=== PATIENT | female | born 1970 | race Two or more races ===

== ENCOUNTER 2025-04-26 16:44 | Emergency (ER) | payer OTHER ==
[~2025-04-26] VITALS: Ht 162.6 cm; Wt 62.6 kg
[~2025-04-26 16:44] MED LIST: PRILOSEC40 MG; ZANTAC150 M1
[2025-04-26 17:07] VITALS: BP 117/78; O2SAT 97
== END 2025-04-26 19:15 | disposition home or self-care (01) ==
LOC: ER 16:55
DX: S62.662A Nondisplaced fracture of distal phalanx of right middle finger, initial encounter for closed fracture (principal); X58.XXXA Exposure to other specified factors, initial encounter; Y93.89 Activity, other specified; Y92.89 Other specified places as the place of occurrence of the external cause; Y99.9 Unspecified external cause status